=== PATIENT | female | born 2000 | race Caucasian/White ===

== ENCOUNTER → 2018-12-01 | Outpatient (CLI) | payer BC ==
[2019-01-23 09:33] LABS: TRICHOMONAS VAGINALIS DNA NEGATIVE (NEGATIVE)
== END ==
LOC: LAB 11:00
PROVIDERS: ATTEND Obstetrics & Gynecology
DX: Z11.3 Encounter for screening for infections with a predominantly sexual mode of transmission (principal)
CPT/HCPCS: 87491; 87591; 87661

== ENCOUNTER 2018-12-02 16:56 | Outpatient (CLI) | payer BC ==
[2018-12-01 21:51] LABS: TRICHOMONAS VAGINALIS DNA NEGATIVE (NEGATIVE)
[2018-12-03 14:51] LABS: HIV AG/AB 4TH GEN NON-REACTIVE (NON-REACTIVE)
[2018-12-03 16:01] LABS: HEPATITIS B SURFACE ANTIGEN NON-REACTIVE (NON-REACTIVE)
[2018-12-03 16:11] LABS: HEPATITIS C ANTIBODY NON-REACTIVE (NON-REACTIVE)
== END 2018-12-02 16:57 | disposition home or self-care (01) ==
LOC: LAB.R 16:56 → LAB 16:57
PROVIDERS: ATTEND Obstetrics & Gynecology
DX: Z11.3 Encounter for screening for infections with a predominantly sexual mode of transmission (principal)
CPT/HCPCS: 36415; 81599; 86592; 86803; 87340; 87389; 87491; 87591; 87661